=== PATIENT | male | born 1985 | race Caucasian/White ===

== ENCOUNTER 2020-10-21 11:12 | Inpatient (IN) ==
[2020-10-21] MEDS ORDERED: HEPARIN DRIP 25,000 UNITS/500 ML PREMIX IV SCH ×3 (11:25→14:30)
[2020-10-21 12:06] LABS: ABG Base Excess 4.6 MMOL/L (-2.5-2.5); ABG HCO3 33.8 MMOL/L (20-26); ABG Oxygen Saturation 94.1 % (95-100); ABG PH 7.267 (7.35-7.45); ABG PO2 83.6 MM HG (80-95); ABG TCO2 36.2 MMOL/L (23-27); Allen Test Positive
[2020-10-21 12:08] LABS: ABG PCO2 75.9 MM HG (35-48)
[2020-10-21] MEDS ORDERED: ALBUTEROL 2.5 MG/3 ML NEB RESP TX PRN (12:37)
[2020-10-21] MEDS ORDERED: ONDANSETRON 4 MG/2 ML VIAL IV PRN (12:37)
[2020-10-21] MEDS: APIXABAN 5 MG TABLET PO SCH ×2 (14:56→21:28)
[2020-10-21] MEDS: PANTOPRAZOLE 40 MG TABLET PO SCH (14:56)
[2020-10-21] MEDS: NICOTINE 21 MG/24 HR PATCH TRANSDERM PRN (15:48)
[2020-10-21] MEDS: BISOPROLOL 5 MG TABLET PO SCH (15:50)
[2020-10-21] MEDS: hydroCHLOROthiazide 25 MG TABLET PO SCH (15:50)
[2020-10-21] MEDS ORDERED: INFLUENZA VIRUS VACCINE 0.5 ML SYRINGE IM ONE (17:08)
[2020-10-21] MEDS ORDERED: APIXABAN 2.5 MG TABLET PO SCH (21:00)
[2020-10-22 06:06] LABS: Calcium 8.4 MG/DL (8.5-10.1); Osmolality,Calculated 287.1 MOS/KG (273-304); Thyroid Stimulating Hormone 2.66 uIU/ml (0.358-3.74)
[2020-10-22 06:39] LABS: Basophils # 0.1 10*3/uL (0.0-0.2); Basophils % 0.6 % (0.0-0.8); Eosinophils # 0.4 10*3/uL (0.0-0.87); Eosinophils % 5.5 % (0.00-10.9); Hematocrit 44.9 VOL% (42.0-52.0); Hemoglobin 11.7 GM/DL (14.0-18.0); Immature Granulocytes % 0.3 %; Immature Granulocytes Absolute 0.02 #; Lymphocytes # 1.2 10*3/uL (1.4-4.0); Lymphocytes % 15.3 % (21.2-54.2); Mean Corpuscular HGB Conc 26.1 GM/DL (32-36); Mean Platelet Volume 10.7 FL (9.6-12.0); Monocytes % 10.8 % (1.7-12.7); NRBC # 0.03 10*3/uL; Neutrophils % 67.5 % (38.7-73.9); Platelet Count 177 T/CUMM (130-400); Red Blood Count 5.22 MC/CUMM (3.8-5.5); Red Cell Distribution Width 20.8 % (9.3-17.3); White Blood Count 7.9 T/CUMM (4-12)
[2020-10-22] MEDS ORDERED: LIDOCAINE 2% TOP JELLY 20 ML VIAL INTRAURETH ONE ×2 (09:13→09:22)
[2020-10-22] MEDS: APIXABAN 5 MG TABLET PO SCH ×2 (09:57→20:36)
[2020-10-22] MEDS: MAGNESIUM OXIDE 400 MG TABLET PO SCH (09:57)
[2020-10-22] MEDS: hydroCHLOROthiazide 25 MG TABLET PO SCH (09:57)
[2020-10-22] MEDS: BISOPROLOL 5 MG TABLET PO SCH (09:57)
[2020-10-22] MEDS: PANTOPRAZOLE 40 MG TABLET PO SCH (09:57)
[2020-10-22] MEDS: methylPREDNISolone SOD SUC 40 MG/1 ML VIAL IV SCH ×2 (09:57→17:15)
[2020-10-22] MEDS: THEOPHYLLINE ER (24 HR) 400 MG CAPSULE PO SCH (10:05)
[2020-10-23] MEDS: methylPREDNISolone SOD SUC 40 MG/1 ML VIAL IV SCH ×3 (00:01→20:32)
[2020-10-23 04:35] LABS: Calcium 8.2 MG/DL (8.5-10.1); Osmolality,Calculated 284.4 MOS/KG (273-304)
[2020-10-23 04:36] LABS: Basophils % 0.1 % (0.0-0.8); Hematocrit 43.4 VOL% (42.0-52.0); Immature Granulocytes % 0.7 %; Immature Granulocytes Absolute 0.05 #; Lymphocytes # 0.3 10*3/uL (1.4-4.0); Lymphocytes % 4.9 % (21.2-54.2); Mean Corpuscular Volume 85.4 FL (87-102); Mean Platelet Volume 10.9 FL (9.6-12.0); Monocytes % 2.4 % (1.7-12.7); NRBC # 0.02 10*3/uL; Neutrophils % 91.9 % (38.7-73.9); Platelet Count 167 T/CUMM (130-400); Red Blood Count 5.08 MC/CUMM (3.8-5.5); Red Cell Distribution Width 20.4 % (9.3-17.3)
[2020-10-23 04:37] LABS: Hemoglobin 11.3 GM/DL (14.0-18.0)
[2020-10-23 04:40] LABS: Lymphocytes 4 % (20-55); Platelet Estimate Normal; Segmented Neutrophils 96 % (50-85); Total Cells Counted 100
[2020-10-23 04:41] LABS: Hypochromasia Slight; Microcytosis Slight
[2020-10-23] MEDS: BISOPROLOL 5 MG TABLET PO SCH (08:31)
[2020-10-23] MEDS: THEOPHYLLINE ER (24 HR) 400 MG CAPSULE PO SCH (08:32)
[2020-10-23] MEDS: PANTOPRAZOLE 40 MG TABLET PO SCH (08:32)
[2020-10-23] MEDS: APIXABAN 5 MG TABLET PO SCH ×2 (08:32→20:32)
[2020-10-23] MEDS: MAGNESIUM OXIDE 400 MG TABLET PO SCH (08:32)
[2020-10-23] MEDS: hydroCHLOROthiazide 25 MG TABLET PO SCH (08:42)
[2020-10-24 06:26] LABS: Calcium 8.4 MG/DL (8.5-10.1); Osmolality,Calculated 286.1 MOS/KG (273-304)
[2020-10-24 06:38] LABS: Basophils % 0.4 % (0.0-0.8); Eosinophils % 0.1 % (0.00-10.9); Hematocrit 40.9 VOL% (42.0-52.0); Immature Granulocytes % 0.5 %; Immature Granulocytes Absolute 0.04 #; Lymphocytes # 0.5 10*3/uL (1.4-4.0); Mean Corpuscular HGB Conc 26.9 GM/DL (32-36); Mean Corpuscular Volume 82.3 FL (87-102); Mean Platelet Volume 9.8 FL (9.6-12.0); Monocytes % 7.6 % (1.7-12.7); NRBC # 0.03 10*3/uL; Neutrophils % 84.4 % (38.7-73.9); Platelet Count 167 T/CUMM (130-400); Red Blood Count 4.97 MC/CUMM (3.8-5.5); Red Cell Distribution Width 20.6 % (9.3-17.3); White Blood Count 7.5 T/CUMM (4-12)
[2020-10-24 06:41] LABS: Anisocytosis 1+; Hypochromasia 1+; Microcytosis 1+; Polychromasia Slight
[2020-10-24 06:42] LABS: Ovalocytes Slight; Platelet Estimate Adequate
[2020-10-24] MEDS: methylPREDNISolone SOD SUC 40 MG/1 ML VIAL IV SCH (09:05)
[2020-10-24] MEDS: THEOPHYLLINE ER (24 HR) 400 MG CAPSULE PO SCH (09:05)
[2020-10-24] MEDS: BISOPROLOL 5 MG TABLET PO SCH (09:05)
[2020-10-24] MEDS: hydroCHLOROthiazide 25 MG TABLET PO SCH (09:05)
[2020-10-24] MEDS: PANTOPRAZOLE 40 MG TABLET PO SCH (09:05)
[2020-10-24] MEDS: APIXABAN 5 MG TABLET PO SCH ×2 (09:06→20:00)
[2020-10-24] MEDS: MAGNESIUM OXIDE 400 MG TABLET PO SCH (09:06)
[2020-10-24] MEDS: predniSONE 20 MG TABLET PO SCH (14:19)
[2020-10-24] MEDS: ALBUTEROL/IPRATROPIUM 3 ML NEB RESP TX SCH ×2 (14:35→19:54)
[2020-10-25] MEDS: ALBUTEROL/IPRATROPIUM 3 ML NEB RESP TX SCH ×7 (00:12→22:58)
[2020-10-25 06:14] LABS: Basophils % 0.3 % (0.0-0.8); Hematocrit 40.6 VOL% (42.0-52.0); Immature Granulocytes % 0.3 %; Immature Granulocytes Absolute 0.02 #; Lymphocytes # 0.4 10*3/uL (1.4-4.0); Lymphocytes % 7.1 % (21.2-54.2); Mean Corpuscular HGB Conc 26.4 GM/DL (32-36); Mean Corpuscular Volume 83.9 FL (87-102); Mean Platelet Volume 10.6 FL (9.6-12.0); Monocytes % 8.9 % (1.7-12.7); Neutrophils % 83.4 % (38.7-73.9); Platelet Count 169 T/CUMM (130-400); Red Blood Count 4.84 MC/CUMM (3.8-5.5); Red Cell Distribution Width 20.4 % (9.3-17.3); White Blood Count 6.1 T/CUMM (4-12)
[2020-10-25 06:21] LABS: Hemoglobin 10.7 GM/DL (14.0-18.0)
[2020-10-25 06:23] LABS: Albumin 2.5 G/DL (3.4-5.0); Bilirubin,Total 1.5 MG/DL (0.2-1.0); Calcium 8.4 MG/DL (8.5-10.1)
[2020-10-25 06:30] LABS: Hypochromasia 1+
[2020-10-25 06:31] LABS: Microcytosis Slight; Platelet Estimate Adequate
[2020-10-25 06:49] LABS: Osmolality,Calculated 285.3 MOS/KG (273-304)
[2020-10-25] MEDS: APIXABAN 5 MG TABLET PO SCH ×2 (08:45→20:21)
[2020-10-25] MEDS: predniSONE 20 MG TABLET PO SCH (08:45)
[2020-10-25] MEDS: BISOPROLOL 5 MG TABLET PO SCH (08:45)
[2020-10-25] MEDS: THEOPHYLLINE ER (24 HR) 400 MG CAPSULE PO SCH (08:45)
[2020-10-25] MEDS: MAGNESIUM OXIDE 400 MG TABLET PO SCH (08:45)
[2020-10-25] MEDS: PANTOPRAZOLE 40 MG TABLET PO SCH (08:46)
[2020-10-25] MEDS: hydroCHLOROthiazide 25 MG TABLET PO SCH (08:46)
[2020-10-26] MEDS: ALBUTEROL/IPRATROPIUM 3 ML NEB RESP TX SCH ×3 (03:17→11:07)
[2020-10-26] MEDS ORDERED: predniSONE 20 MG TABLET PO SCH (09:11)
[2020-10-26] MEDS: MAGNESIUM OXIDE 400 MG TABLET PO SCH (09:47)
[2020-10-26] MEDS: hydroCHLOROthiazide 25 MG TABLET PO SCH (09:47)
[2020-10-26] MEDS: NICOTINE 21 MG/24 HR PATCH TRANSDERM PRN (09:48)
[2020-10-26] MEDS: BISOPROLOL 5 MG TABLET PO SCH (09:48)
[2020-10-26] MEDS: PANTOPRAZOLE 40 MG TABLET PO SCH (09:48)
[2020-10-26] MEDS: APIXABAN 5 MG TABLET PO SCH (09:48)
[2020-10-26] MEDS: THEOPHYLLINE ER (24 HR) 400 MG CAPSULE PO SCH (09:48)
[2020-10-26] MEDS: predniSONE 20 MG TABLET PO SCH (09:51)
[2020-10-26 15:38] VITALS: BP 139/75
[2020-10-28] MEDS ORDERED: APIXABAN 5 MG TABLET PO SCH (09:00)
== END 2020-10-26 17:30 | disposition home or self-care (01) | DRG 175 ==
LOC: EDBD → EDUNIT# → N.ED 11:12 → N.EDINP 12:37 → SUATTDRO 12:37 → N.ICU 14:08 → N.4E 10-23 11:42
PROVIDERS: ADMIT Internal Medicine; ATTEND Internal Medicine

== ENCOUNTER 2022-08-07 18:29 | Inpatient (IN) ==
[2022-08-07 19:27] LABS: Albumin 2.8 G/DL (3.4-5.0); Bilirubin,Total 1.2 MG/DL (0.20-1.00); Calcium 8.4 MG/DL (8.5-10.1); Osmolality,Calculated 285.3 MOS/KG (273-304); Total Protein 6.6 G/DL (6.4-8.2)
[2022-08-07 19:42] LABS: Basophils % 0.4 % (0.0-0.8); Eosinophils # 0.2 10*3/uL (0.0-0.87); Eosinophils % 2.9 % (0.00-10.9); Hematocrit 37.6 VOL% (42.0-52.0); Hemoglobin 9.6 GM/DL (14.0-18.0); Immature Granulocytes % 0.7 %; Immature Granulocytes Absolute 0.05 #; Lymphocytes # 0.8 10*3/uL (1.4-4.0); Lymphocytes % 10.8 % (21.2-54.2); Mean Corpuscular HGB Conc 25.5 GM/DL (32-36); Mean Corpuscular Volume 80.5 FL (87-102); Mean Platelet Volume 10.4 FL (9.6-12.0); Monocytes # 0.7 10*3/uL (0.11-0.8); Monocytes % 8.9 % (1.7-12.7); NRBC # 0.06 10*3/uL; Neutrophils % 76.3 % (38.7-73.9); Platelet Count 235 T/CUMM (130-400); Red Blood Count 4.67 MC/CUMM (3.8-5.5); Red Cell Distribution Width 22.5 % (9.3-17.3); White Blood Count 7.5 T/CUMM (4-12)
[2022-08-07 20:41] LABS: Anisocytosis 1+
[2022-08-07 20:42] LABS: Hypochromia 1+; Macrocytosis 1+; Microcytosis 1+; Platelet Estimate Adequate; Polychromasia 1+
[2022-08-07] MEDS ORDERED: FUROSEMIDE 40 MG/4 ML VIAL IV STA (21:33)
[2022-08-07] MEDS ORDERED: guaiFENesin/DM ER 600-30 MG TABLET PO PRN (22:43)
[2022-08-07] MEDS ORDERED: MORPHINE 2 MG/1 ML SYRINGE IV PRN (22:43)
[2022-08-07] MEDS ORDERED: hydrALAZINE 20 MG/1 ML VIAL IV PRN (22:43)
[2022-08-07] MEDS ORDERED: ONDANSETRON 4 MG/2 ML VIAL IV PRN (22:43)
[2022-08-07] MEDS ORDERED: ACETAMINOPHEN 325 MG TABLET PO PRN (22:43)
[2022-08-07] MEDS ORDERED: diphenhydrAMINE CAP 25 MG CAPSULE PO PRN (22:43)
[2022-08-07] MEDS ORDERED: GLUCAGON 1 MG VIAL IM PRN (22:43)
[2022-08-07] MEDS ORDERED: NICOTINE 21 MG/24 HR PATCH TRANSDERM PRN (22:43)
[2022-08-07] MEDS ORDERED: ZALEPLON 5 MG CAPSULE PO PRN (22:43)
[2022-08-07] MEDS ORDERED: DEXTROSE 10% 250 ML BAG IV PRN (22:43)
[2022-08-08] MEDS: ALBUTEROL/IPRATROPIUM 3 ML NEB RESP TX SCH ×4 (00:24→19:10)
[2022-08-08] MEDS: APIXABAN 5 MG TABLET PO SCH ×3 (01:00→21:14)
[2022-08-08 05:53] LABS: Calcium 8.4 MG/DL (8.5-10.1); Osmolality,Calculated 282.1 MOS/KG (273-304); Potassium 3.3 MMOL/L (3.5-5.1)
[2022-08-08 05:59] LABS: Basophils % 0.3 % (0.0-0.8); Eosinophils # 0.2 10*3/uL (0.0-0.87); Eosinophils % 2.3 % (0.00-10.9); Hemoglobin 9.4 GM/DL (14.0-18.0); Immature Granulocytes % 0.6 %; Immature Granulocytes Absolute 0.05 #; Lymphocytes # 0.9 10*3/uL (1.4-4.0); Lymphocytes % 9.7 % (21.2-54.2); Mean Corpuscular HGB Conc 26.1 GM/DL (32-36); Mean Corpuscular Volume 80.4 FL (87-102); Mean Platelet Volume 10.8 FL (9.6-12.0); Monocytes % 10.7 % (1.7-12.7); NRBC # 0.04 10*3/uL; Neutrophils % 76.4 % (38.7-73.9); Platelet Count 220 T/CUMM (130-400); Red Blood Count 4.48 MC/CUMM (3.8-5.5); Red Cell Distribution Width 22.5 % (9.3-17.3); White Blood Count 8.9 T/CUMM (4-12)
[2022-08-08 06:20] LABS: Hypochromia 1+
[2022-08-08 06:21] LABS: Anisocytosis 1+; Microcytosis 1+; Polychromasia Slight
[2022-08-08 06:22] LABS: Platelet Estimate Normal; Stomatocytes Slight
[2022-08-08] MEDS ORDERED: MAGNESIUM SULF RIDER 2 GM/50 ML PREMIX IV ONE (08:01)
[2022-08-08] MEDS ORDERED: POTASSIUM CHLORIDE 20 MEQ TABLET PO ONE (08:24)
[2022-08-08 08:31] LABS: Folate 6.6 NG/ML (5.38-24.0)
[2022-08-08 08:33] LABS: % Iron Saturation 5.2 % (18-50); Ferritin 18.7 ng/mL (26-388)
[2022-08-08] MEDS: PANTOPRAZOLE 40 MG TABLET PO SCH (08:59)
[2022-08-08] MEDS: LOSARTAN 25 MG TABLET PO SCH ×2 (08:59→21:14)
[2022-08-08] MEDS: BISACODYL 5 MG TABLET PO SCH (08:59)
[2022-08-08] MEDS ORDERED: METOPROLOL TARTRATE 25 MG TABLET PO SCH (09:00)
[2022-08-08] MEDS ORDERED: amLODIPine 5 MG TABLET PO SCH (09:00)
[2022-08-08] MEDS: NEBIVOLOL 10 MG TABLET PO SCH (09:00)
[2022-08-08] MEDS ORDERED: amLODIPine 10 MG TABLET PO SCH (09:00)
[2022-08-08] MEDS ORDERED: METOPROLOL TARTRATE 50 MG TABLET PO SCH (09:00)
[2022-08-08 09:02] LABS: Basophils % 0.2 % (0.0-0.8); Eosinophils # 0.2 10*3/uL (0.0-0.87); Eosinophils % 1.8 % (0.00-10.9); Hemoglobin 9.8 GM/DL (14.0-18.0); Immature Granulocytes % 0.6 %; Immature Granulocytes Absolute 0.05 #; Lymphocytes # 0.7 10*3/uL (1.4-4.0); Lymphocytes % 8.7 % (21.2-54.2); Mean Corpuscular HGB Conc 25.1 GM/DL (32-36); Mean Corpuscular Volume 81.4 FL (87-102); Mean Platelet Volume 10.5 FL (9.6-12.0); Monocytes # 0.8 10*3/uL (0.11-0.8); Monocytes % 10.3 % (1.7-12.7); NRBC # 0.03 10*3/uL; Neutrophils % 78.4 % (38.7-73.9); Platelet Count 217 T/CUMM (130-400); Red Blood Count 4.79 MC/CUMM (3.8-5.5); Red Cell Distribution Width 22.5 % (9.3-17.3); White Blood Count 8.1 T/CUMM (4-12)
[2022-08-08] MEDS: POTASSIUM CHLORIDE 20 MEQ TABLET PO SCH ×2 (09:02→21:14)
[2022-08-08] MEDS: FUROSEMIDE 40 MG/4 ML VIAL IV SCH ×2 (09:02→16:45)
[2022-08-08 09:31] LABS: Band Neutrophils 1 % (0-10); Eosinophils 2 % (0-10); Lymphocytes 8 % (20-55); Total Cells Counted 100
[2022-08-08 09:32] LABS: Anisocytosis 1+; Hypochromia 1+; Microcytosis 1+; Polychromasia Slight
[2022-08-08 09:33] LABS: Platelet Estimate Normal; Stomatocytes Slight
[2022-08-08] MEDS ORDERED: AZITHROMYCIN 250 MG TABLET PO ONE (12:08)
[2022-08-08 12:16] LABS: Peripheral Blood Smear Slide SEE INTREP
[2022-08-08 12:17] LABS: Peripheral Smear Path Interp SEE COMMENTS
[2022-08-08 12:33] LABS: Barbiturates Screen,Urine Negative (Negative); Benzodiazepines Screen,Urine Negative (Negative); Cannabinoid Screen,Urine Negative (Negative); Opiate Screen,Urine Negative (Negative); Phencyclidine Screen,Urine Negative (Negative)
[2022-08-08] MEDS: FERROUS SULFATE 325 MG TABLET PO SCH (21:14)
[2022-08-09] MEDS: ALBUTEROL/IPRATROPIUM 3 ML NEB RESP TX SCH ×2 (00:22→07:14)
[2022-08-09 06:48] LABS: Calcium 8.3 MG/DL (8.5-10.1); Osmolality,Calculated 280.3 MOS/KG (273-304); Potassium 3.4 MMOL/L (3.5-5.1)
[2022-08-09 06:56] LABS: Basophils % 0.4 % (0.0-0.8); Eosinophils # 0.2 10*3/uL (0.0-0.87); Hematocrit 37.5 VOL% (42.0-52.0); Immature Granulocytes % 0.5 %; Immature Granulocytes Absolute 0.04 #; Lymphocytes # 0.7 10*3/uL (1.4-4.0); Lymphocytes % 9.4 % (21.2-54.2); Mean Corpuscular HGB Conc 25.1 GM/DL (32-36); Mean Corpuscular Volume 82.1 FL (87-102); Mean Platelet Volume 10.4 FL (9.6-12.0); Monocytes # 0.9 10*3/uL (0.11-0.8); Monocytes % 11.2 % (1.7-12.7); NRBC # 0.03 10*3/uL; Neutrophils % 75.5 % (38.7-73.9); Platelet Count 201 T/CUMM (130-400); Red Blood Count 4.57 MC/CUMM (3.8-5.5); Red Cell Distribution Width 22.4 % (9.3-17.3); White Blood Count 7.7 T/CUMM (4-12)
[2022-08-09 06:57] LABS: Hemoglobin 9.4 GM/DL (14.0-18.0)
[2022-08-09] MEDS ORDERED: SPIRONOLACTONE 25 MG TABLET PO SCH (09:00)
[2022-08-09] MEDS ORDERED: AZITHROMYCIN 250 MG TABLET PO SCH (09:00)
[2022-08-09] MEDS: FERROUS SULFATE 325 MG TABLET PO SCH (09:48)
[2022-08-09] MEDS: LOSARTAN 25 MG TABLET PO SCH (09:48)
[2022-08-09] MEDS: APIXABAN 5 MG TABLET PO SCH (09:48)
[2022-08-09] MEDS: NEBIVOLOL 10 MG TABLET PO SCH (09:48)
[2022-08-09] MEDS: PANTOPRAZOLE 40 MG TABLET PO SCH (09:49)
[2022-08-09] MEDS: FUROSEMIDE 40 MG/4 ML VIAL IV SCH (09:53)
[2022-08-09] MEDS: BISACODYL 5 MG TABLET PO SCH (10:11)
[2022-08-09] MEDS ORDERED: POTASSIUM CHLORIDE 20 MEQ TABLET PO ONE (10:40)
[2022-08-09 12:20] VITALS: BP 184/79
== END 2022-08-09 13:32 | disposition home or self-care (01) | DRG 189 ==
LOC: N.ED 18:29 → N.EDINP 22:43 → N.TELEN 08-08 01:43
PROVIDERS: ADMIT Family Medicine; ATTEND Family Medicine